=== PATIENT | female | born 1990 | race Caucasian/White ===

== ENCOUNTER 2021-10-28 23:22 | Emergency (ER) | payer BC ==
[~2021-10-28 23:22] MED LIST: COLACE100 MG PO; DOCUSATE SODIU250 MG PO; FERROUS SULFAT325 MG PO; IBUPROFEN600 MG PO; PRENATAL MULTI1 EAC4 PO
[2021-10-29 01:09] LABS: RED BLOOD COUNT 4.54 M/UL (4.00-5.10); WHITE BLOOD COUNT 11.8 K/UL (4.5-11.0)
[2021-10-29 01:12] LABS: HEMOGLOBIN 14.8 gm/dl (12.3-15.3)
[2021-10-29 01:29] LABS: BUN/CREATININE RATIO 25 (0-10)
== END 2021-10-29 02:50 | disposition home or self-care (01) ==
LOC: ER1 23:22
PROVIDERS: Family Medicine
DX: R00.0 Tachycardia, unspecified (principal); R07.81 Pleurodynia
CPT/HCPCS: 80053; 82550; 82553; 84484; 85025; 85379; 93005; 99285; Q9967